=== PATIENT | male | born 1985 | race Two or more races ===

== ENCOUNTER 2023-09-11 17:55 | Emergency (ER) | payer OTHER ==
[~2023-09-11] VITALS: Ht 180.3 cm; Wt 81.8 kg
[2023-09-11] MEDS ORDERED: PROP20TA18 PO (18:27)
[2023-09-11] MEDS ORDERED: SERT-162 PO (18:27)
[2023-09-11] MEDS ORDERED: LIDOCAINE 1% 10 ML VIAL ID ONE (18:45)
[2023-09-11] MEDS ORDERED: PERTUSS(ACELL),DIPH,TET VAC/PF 0.5 ML SYRINGE IM. ONE (18:45)
[2023-09-11] MEDS ORDERED: CEPHALEXIN MONOHYDRATE 500 MG CAPSULE PO ONE (19:30)
[2023-09-11] MEDS ORDERED: BACITRACIN 0.9 GM PACKET OINTMENT TP ONE (19:30)
[2023-09-11 20:09] VITALS: TEMP 98
[2023-09-11 20:10] VITALS: BP 139/85; PULSE 69; RESP 16
== END 2023-09-11 21:18 ==
LOC: EMS 17:58
DX: S01.122A Laceration with foreign body of left eyelid and periocular area, initial encounter (principal); F41.9 Anxiety disorder, unspecified; W19.XXXA Unspecified fall, initial encounter; Y93.89 Activity, other specified; Y92.89 Other specified places as the place of occurrence of the external cause; Y99.8 Other external cause status
CPT/HCPCS: 99283; 90715; 90471; 12011; J3490